=== PATIENT | female | born 1995 | race Hispanic/Latino ===

== ENCOUNTER 2022-09-27 05:27 | Inpatient (IN) | payer BC, OTHER ==
[2022-09-26 11:39] LABS: Hemoglobin 11.5 g/dL (12.0-15.5); Platelet Count 289 10x3/uL (150-450)
[2022-09-26 12:16] LABS: HBSAg Index 0.13 S/CO (0-0.99); Hep B Surf Ag Non-Reactive S/CO (NonReactive)
[2022-09-26 12:18] LABS: Syphilis Antibody Nonreactive (Nonreactive); Syphilis Antibody Index 0.07 S/CO (<1.00 Non-Reactive)
[2022-09-27] MEDS ORDERED: CEFAZOLIN 2 GM VIAL ONE (05:33)
[2022-09-27 05:46] VITALS: BMI 34.1
[2022-09-27] MEDS ORDERED: Meperidine HCl/PF 25 MG/ML VIAL SLOW IVP PRN (06:56)
[2022-09-27] MEDS ORDERED: Misoprostol 200 MCG TAB PR PRN (06:56)
[2022-09-27] MEDS ORDERED: diphenhydrAMINE 50 MG/ML VIAL IVP PRN (06:56)
[2022-09-27] MEDS ORDERED: hydrALAZINE 20 MG/ML VIAL SLOW IVP PRN ×2 (06:56→10:52)
[2022-09-27] MEDS ORDERED: Lactated Ringer's 1,000 ML IV SCH (06:56)
[2022-09-27] MEDS ORDERED: Promethazine HCl 25 MG SUPP PR PRN (06:56)
[2022-09-27] MEDS ORDERED: Moisturizing Cream (Eucerin) 113 GM JAR TOP PRN (06:56)
[2022-09-27] MEDS ORDERED: Famotidine/PF 20 mg/2ml Vial SLOW IVP PRN (06:56)
[2022-09-27] MEDS ORDERED: NS w/ Oxytocin 30 units 500 ML IV SCH (06:56)
[2022-09-27] MEDS ORDERED: CEFAZOLIN 2 GM in Sodium Chloride 0.9% 100 ML IVPB SCH (06:56)
[2022-09-27] MEDS ORDERED: Diphenoxylate HCl/Atropine Tablet PO PRN ×2 (06:56)
[2022-09-27] MEDS ORDERED: Naloxone HCl 0.4 mg/ml Vial IV PRN (06:56)
[2022-09-27] MEDS ORDERED: Bicitra 30 ML UDCUP PO PRN (06:56)
[2022-09-27] MEDS ORDERED: Ondansetron PF 4 MG/2 ML Vial IVP PRN ×2 (06:56)
[2022-09-27] MEDS ORDERED: Carboprost 250 MCG/ML AMP IM PRN (06:56)
[2022-09-27] MEDS ORDERED: Fentanyl 100 MCG/2 ML VIAL SLOW IVP PRN (06:56)
[2022-09-27] MEDS ORDERED: Naloxone HCl 0.4 mg/ml Vial IVP PRN ×2 (06:56)
[2022-09-27] MEDS ORDERED: Ondansetron HCl/PF 4 MG/2 ML Vial IVP PRN (06:56)
[2022-09-27] MEDS ORDERED: Promethazine HCl 25 MG/ML VIAL IM PRN ×2 (06:56)
[2022-09-27] MEDS ORDERED: Ketorolac Tromethamine 30 MG/ML VIAL IVP SCH (07:00)
[2022-09-27] MEDS ORDERED: Communication Order-Pharmacy FS SCH (07:00)
[2022-09-27] MEDS ORDERED: Famotidine/PF 20 mg/2ml Vial ONE (07:03)
[2022-09-27] MEDS ORDERED: Morphine PF 10 MG/10 ML VIAL ONE (07:04)
[2022-09-27] MEDS ORDERED: ePHEDrine Sulfate 50 MG/10 ML VIAL ONE (07:04)
[2022-09-27] MEDS ORDERED: Ondansetron PF 4 MG/2 ML Vial ONE ×2 (07:06→07:57)
[2022-09-27] MEDS ORDERED: Dexamethasone 4 mg/ml Vial ONE (07:06)
[2022-09-27] MEDS ORDERED: Phenylephrine 40 MG/NS 250 ML 250 ML ONE (07:06)
[2022-09-27] MEDS ORDERED: Ketorolac Tromethamine 30 MG/ML VIAL ONE (07:06)
[2022-09-27] MEDS ORDERED: Phenylephrine 10 MG/ML VIAL ONE (07:06)
[2022-09-27] MEDS ORDERED: Oxytocin 10 UNITS/ML VIAL ONE (07:06)
[2022-09-27] MEDS ORDERED: Promethazine HCl 25 MG/ML VIAL ONE (09:07)
[2022-09-27] MEDS ORDERED: Simethicone Chewable 80 MG TAB PO PRN (10:52)
[2022-09-27] MEDS ORDERED: Boostrix 0.5 ML (Tdap) VIAL (>/=7 yrs of age) IM ONE (10:52)
[2022-09-27] MEDS ORDERED: Bisacodyl 10 MG SUPP PR PRN (10:52)
[2022-09-27] MEDS ORDERED: Measles/Mumps/Rubella 10 MCG/0.5 ML VIAL SC ONE (10:52)
[2022-09-27] MEDS ORDERED: Lanolin Ointment 7 GM TUBE TOP PRN (10:52)
[2022-09-27] MEDS ORDERED: Varicella virus, LIVE 0.5 ML VIAL SC ONE (10:52)
[2022-09-27] MEDS ORDERED: Acetaminophen 325 MG TAB PO PRN (10:52)
[2022-09-27] MEDS: Ketorolac Tromethamine 30 MG/ML VIAL IVP PRN ×2 (14:19→20:55)
[2022-09-27] MEDS ORDERED: HYDROcodone/Acetaminophen 5/325 mg Tablet PO PRN ×2 (19:00)
[2022-09-27] MEDS: Ferrous Sulfate 325 MG TAB PO SCH (20:55)
[2022-09-27] MEDS: Docusate 100 MG CAP PO SCH (20:55)
[2022-09-28 04:28] LABS: Hemoglobin 8.7 g/dL (12.0-15.5); Mean Corpuscular HGB CONC 31.5 g/dL (32.0-36.0); Mean Corpuscular Hemoglobin 24.7 pg (27.0-33.0); Mean Corpuscular Volume 78.4 fl (81.6-98.3); Mean Platelet Volume 10.4 fl (7.4-10.4); Platelet Count 268 10x3/uL (150-450); RBC Distribution Width 15.1 % (11.5-14.5); Red Blood Cell (RBC) Count 3.52 10x6/uL (3.90-5.03); White Blood Cell (WBC) Count 13.9 10x3/uL (3.5-10.5)
[2022-09-28] MEDS: Ketorolac Tromethamine 30 MG/ML VIAL IVP PRN (05:21)
[2022-09-28] MEDS: Ferrous Sulfate 325 MG TAB PO SCH ×2 (09:16→21:54)
[2022-09-28] MEDS: Prenatal Vitamin 1 TAB PO SCH (09:16)
[2022-09-28] MEDS: Docusate 100 MG CAP PO SCH ×2 (09:16→21:54)
[2022-09-28] MEDS: Ibuprofen 800 MG TAB PO SCH ×2 (15:52→21:54)
[2022-09-29] MEDS: Ibuprofen 800 MG TAB PO SCH (05:01)
[2022-09-29 08:24] VITALS: BP 119/56; TEMP 98.2
[2022-09-29] MEDS: Docusate 100 MG CAP PO SCH (09:07)
[2022-09-29] MEDS: Prenatal Vitamin 1 TAB PO SCH (09:07)
[2022-09-29] MEDS: Ferrous Sulfate 325 MG TAB PO SCH (09:07)
== END 2022-09-29 14:30 | disposition home or self-care (01) | DRG 787 ==
LOC: CSHLD 05:27 → CSHPP 11:10
PROVIDERS: ADMIT Obstetrics & Gynecology; ATTEND Obstetrics & Gynecology
PROC: 10D00Z1 Extraction of Products of Conception, Low, Open Approach (ICD-10-PCS; principal; 2022-09-27)
PROC: 0DNW0ZZ Release Peritoneum, Open Approach (ICD-10-PCS; 2022-09-27)
DX: O34.211 Maternal care for low transverse scar from previous cesarean delivery (principal); D62 Acute posthemorrhagic anemia; Z3A.39 39 weeks gestation of pregnancy; Z37.0 Single live birth; O69.81X0 Labor and delivery complicated by cord around neck, without compression, not applicable or unspecified; O99.892 Other specified diseases and conditions complicating childbirth; N73.6 Female pelvic peritoneal adhesions (postinfective); O90.81 Anemia of the puerperium; Z79.899 Other long term (current) drug therapy
CPT/HCPCS: 36415; 51702; 85014; 85018; 85027; 85049; 86780; 86850; 86900; 86901; 87340; J1100; J1885; J2274; J2370; J2405; J2550; J2590; S0028